=== PATIENT | male | born 1965 | race Caucasian/White ===

== ENCOUNTER 2018-02-15 10:44 | Outpatient (CLI) | payer BC ==
--- NOTE | 2018-02-15 12:53 | RAD ---
LUMBAR SPINE FOUR VIEWS: History: Low back pain. FINDINGS: There are five lumbar type vertebrae. Pedicles are intact. S-shaped rotatory scoliotic curvature on t he frontal view. Vertebral body heights are maintained. Disc space narrowing at the L4-5 level. There is 0.2 cm retrolisthesis at the L3-4 and L4-5 levels without abnormal translational motion upon flex ion or extension. Scattered Schmorl's nodes through the endplates. Moderate lower facet osteophytosis . IMPRESSION: Lumbar spondylosis. No acute osseous abnormalities are demonstrated. POS: [facility]
== END 2018-02-15 10:45 | disposition home or self-care (01) ==
LOC: TBSIIMAG 10:44
PROVIDERS: ATTEND Neurological Surgery
DX: M54.5 Low back pain (principal); M47.896 Other spondylosis, lumbar region
CPT/HCPCS: 72110

== ENCOUNTER 2018-04-12 07:55 | Outpatient (CLI) | payer BC ==
[2018-04-12 08:46] LABS: #Eosinphils 0.3 thou/uL (0.0-0.7); #Lymphocytes 1.5 thou/uL (1.20-3.40); #Monocytes 0.3 thou/uL (0.11-0.59); #Neutrophils 2.7 thou/uL (1.40-6.50); %Basophils 0.9 % (0.0-1.0); %Eosinophils 6.5 % (0.0-10.0); %Monocytes 6.4 % (0.0-10.0); %Neutrophils 55.2 % (42.0-75.0); Hemoglobin 15.7 g/dL (14.0-18.0); Mean Corpuscular HGB CONC 34.9 g/dL (32.0-36.0); Mean Corpuscular Hemoglobin 31.8 pg (27.0-31.0); Mean Corpuscular Volume 91.1 fL (78.0-98.0); Mean Platelet Volume 7.5 fL (7.4-10.4); Platelet Count 250 thou/uL (130-400); RBC Distribution Width 11.7 % (11.5-14.5); Red Blood Cell (RBC) Count 4.93 mill/uL (4.70-6.10); White Blood Cell (WBC) Count 4.9 thou/uL (4.8-10.8)
[2018-04-12 09:10] LABS: ALT (SGPT) 18 U/L (8-55); AST (SGOT) 16 U/L (5-34); Albumin 4.4 g/dL (3.5-5.0); Alkaline Phosphatase 79 U/L (40-150); Anion Gap 13 mmol/L (10-20); BUN (Urea Nitrogen) 15 mg/dL (8.4-25.7); Bilirubin, Total 0.7 mg/dL (0.2-1.2); Calc. Creatinine Clearance 0 mL/min (70-130); Calcium 9.6 mg/dL (7.8-10.44); Carbon Dioxide 25 mmol/L (22-29); Chloride 105 mmol/L (98-107); Estimated GFR-MDRD 57; Glucose 94 mg/dL (70-105); Potassium 3.8 mmol/L (3.5-5.1); Protein, Total 7.4 g/dL (6.0-8.3); Sodium 139 mmol/L (136-145)
== END 2018-04-12 07:56 | disposition home or self-care (01) ==
LOC: LABBT 07:55
PROVIDERS: ATTEND Surgery
DX: Z01.818 Encounter for other preprocedural examination (principal); K40.90 Unilateral inguinal hernia, without obstruction or gangrene, not specified as recurrent
CPT/HCPCS: 80053; 85025; 93005; 93010

== ENCOUNTER 2018-04-13 07:02 | Day surgery (SDC) | payer BC ==
[2018-04-12 08:18] VITALS: BMI 27.4
[2018-04-13] MEDS ORDERED: CEFAZOLIN/Water 2 GM/20 ML SYRINGE ONE (07:47)
[2018-04-13] MEDS ORDERED: Fentanyl 100 MCG/2 ML VIAL ONE ×3 (09:25→12:54)
[2018-04-13] MEDS ORDERED: Bupivacaine/Epinephrine 0.25% 30 ML VIAL ONE (09:29)
[2018-04-13] MEDS ORDERED: Midazolam HCl 2 mg/2 ml Vial ONE (10:25)
[2018-04-13] MEDS ORDERED: PROPOFOL 200 MG/20 ML VIAL ONE (12:25)
[2018-04-13] MEDS ORDERED: Ketorolac Tromethamine 30 MG/ML VIAL ONE (12:25)
[2018-04-13] MEDS ORDERED: Ondansetron HCl/PF 4 MG/2 ML Vial ONE (12:25)
[2018-04-13] MEDS ORDERED: Dexamethasone 20 MG/5 ML VIAL ONE (12:25)
[2018-04-13] MEDS ORDERED: Lidocaine 1% PF 5 ML VIAL ONE (12:25)
[2018-04-13] MEDS ORDERED: Promethazine HCl 25 MG/ML VIAL ONE (12:54)
--- NOTE | 2018-04-13 13:43 | OP ---
DATE OF PROCEDURE: 04/13/2018 PREOPERATIVE DIAGNOSES: Right inguinal hernia and a skin nodule, left forearm. SURGEON: Dr. Farris. PROCEDURE PERFORMED: Right inguinal hernia repair with mesh, excisional biopsy of left forearm skin lesion. INDICATIONS: A 52-year-old male who is currently undergoing radiation therapy for prostate cancer wh o has a known right inguinal hernia that became extremely painful. He tried to deal with it, but was having more difficulty reducing. FINDINGS: Right indirect inguinal hernia. He also had a 7 mm irregular nodule, left forearm. PROCEDURE IN DETAIL: After informed consent was obtained, patient was taken to the operating room an d given general endotracheal anesthesia, placed in the supine position. Abdomen was prepped and drap ed in usual fashion. Local anesthesia infiltrated subcutaneously and deep. A transverse left inguin al incision was performed and subcu divided sharply. Fascia external oblique was incised in directio n of its fibers through the external ring. Spermatic cord isolated with a Racquel drain. Cremasteri c fibers . There was a hernia sac that was found. This was dissected from surrounding cord structures down to the internal ring and reduced. Reduction maintained with a PHS hernia system jasbir darnell in the preperitoneal space, laid out anterior, sutured the pubic tubercle with a 2-0 Prolene sutu re medially, tucked under the external oblique fascia laterally. A notch was cut out for the spermat ic cord. Hemostasis achieved. The cord placed anatomic. External oblique fascia closed with a runn ing 3-0 Vicryl. Jesus's closed with interrupted 3-0 Vicryl and skin closed with a running subcuticu lar 4-0 Rapide. Steri-Strips applied. Sterile bandage applied. Then his left forearm was prepped a nd draped in usual fashion. Local anesthesia infiltrated subcutaneously and deep and a radial ellipt ical incision was performed. Subcu divided sharply. The lesion was excised, marked proximally with a suture sent to pathology for further analysis. Hemostasis was achieved with electrocautery. Subcu taneous reapproximated with interrupted 3-0 Vicryl. Skin closed with a running subcuticular 4-0 Rapi de. Steri-Strips applied. Sterile bandage applied. The patient tolerated the procedure well and wa s transferred to recovery in good condition. Sponge and needle count verified correct x2.
[2018-04-13] MEDS ORDERED: HYDROcodone/Acetaminophen 5/325 mg Tablet ONE (14:09)
--- NOTE | 2018-04-18 07:56 | PQF ---
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 Check the appropriate box and include in your discharge summary. [ ] [ ] [ ] [ ] Please check this box if this does not apply to this patient [ ] Unable to determine [ ] Other diagnosis: Review the following information and exercise your independent professional judgment in responding to the clarification. Based upon the clinical findings, risk factors, and treatment, please clarify if you are treating one of the above probable or suspected diagnoses. Physician Signature: Date Time MTDD
== END 2018-04-13 14:28 | disposition home or self-care (01) ==
LOC: SDC 07:02
PROVIDERS: ATTEND Surgery
PROC: 0YU50JZ Supplement Right Inguinal Region with Synthetic Substitute, Open Approach (ICD-10-PCS; principal; 2018-04-13)
PROC: 0HBEXZZ Excision of Left Lower Arm Skin, External Approach (ICD-10-PCS; principal; 2018-04-13)
DX: K40.90 Unilateral inguinal hernia, without obstruction or gangrene, not specified as recurrent (principal); C44.629 Squamous cell carcinoma of skin of left upper limb, including shoulder; G47.30 Sleep apnea, unspecified; Z79.899 Other long term (current) drug therapy
CPT/HCPCS: 88305; 96374; 96375; C1781; J1100; J1885; J2001; J2250; J2405; J2550; J2704; J3010

== ENCOUNTER 2018-09-22 13:19 | Outpatient (CLI) | payer BC ==
--- NOTE | 2018-09-22 15:21 | RAD ---
THREE VIEWS LUMBAR SPINE: HISTORY: Spondylolisthesis. Pain. COMPARISON: None. FINDINGS: There are 5 lumbar-type vertebral bodies. Lumbar spine vertebral body height is maintained. No frac ture. In the neutral position, there is 3 mm of retrolisthesis of L4 upon L5. Upon extension, there is 3 mm of retrolisthesis of L4 upon L5. Upon flexion, approximately 4 mm of retrolisthesis of L4 u isai L5. In the neutral position, there is 3 mm of retrolisthesis of L3 upon L4. Upon extension, there is 4 m m retrolisthesis of L3 upon L4. Upon flexion, there is 2 mm retrolisthesis of L3 upon L4. There is degenerative change in the distal thoracic spine. IMPRESSION: Spondylolisthesis (grade I of L3 upon L4 and L4 upon L5 as described above). POS: KAVEH
--- NOTE | 2018-09-22 16:35 | CT ---
CT LUMBAR SPINE WITHOUT CONTRAST: Date: 09/22/18 HISTORY: M43.16 spondylolisthesis of lumbar region. Low back pain. COMPARISON: Spine radiographs same date. MRI lumbar spine dated 05/17/18. FINDINGS: Aortic contour is nonaneurysmal. Moderate atherosclerotic plaque. Paraspinal musculature is symmetric. No retroperitoneal adenopathy. No acute fracture or malalignment. Level by level evaluation of the lumbar spine is performed on the 05/17/18 MRI examination, with spondylosis worst at L4-5 with circumferential disc osteophyte complex with bilateral neural foraminal narrowing, likely nerve root abutment. No spondylolisthesis. No pars interarticularis defects. There is low grade L3 over L4 retrolisthesis, as well as L4 over L5 retrolisthesis due to degenerative disc space disease. IMPRESSION: 1. Spondylosis as described on the 05/17/18 lumbar spine MRI, not significantly changed. 2. No fracture or malalignment. 3. Retrolisthesis of L3 over L4 and L4 over L5, as seen on the radiographs of same date. No pars int erarticularis defects. POS: [facility]
== END 2018-09-22 13:20 | disposition home or self-care (01) ==
LOC: TBSIIMAG 13:19
PROVIDERS: ATTEND Neurological Surgery
DX: M43.16 Spondylolisthesis, lumbar region (principal)
CPT/HCPCS: 72100; 72131

== ENCOUNTER 2021-01-20 10:56 | Outpatient (CLI) | payer BC | END 2021-01-20 10:57 | disposition home or self-care (01) | LOC: CT 10:56 | PROVIDERS: ATTEND Physician Assistant Medical | DX: R10.30 Lower abdominal pain, unspecified (principal); K57.30 Diverticulosis of large intestine without perforation or abscess without bleeding; N28.1 Cyst of kidney, acquired; K63.89 Other specified diseases of intestine | CPT/HCPCS: 74177; 82565 ==

== ENCOUNTER 2025-07-25 08:51 | Outpatient (CLI) | payer BC | END 2025-07-25 08:52 | disposition home or self-care (01) | LOC: BICRAD 08:51 | DX: M17.12 Unilateral primary osteoarthritis, left knee (principal); M25.562 Pain in left knee ==